=== PATIENT | female | born 2000 | race Caucasian/White ===

== ENCOUNTER → 2024-07-12 07:36 | Outpatient (REF) | payer BC, SELFPAY ==
[2024-07-14 08:13] LABS: Quantiferon Mitogen minus NIL 9.91 IU/mL; Quantiferon NIL 0.09 IU/mL; Quantiferon Plus TB1 minus NIL 0.03 IU/mL (<=0.34); Quantiferon Plus TB2 minus NIL 0.01 IU/mL (<=0.34); Quantiferon TB Gold Plus Negative (Negative)
== END ==
LOC: REG 07:36
PROVIDERS: ATTENDING PHYSICIAN Nurse Practitioner Adult Health; FAMILY PHYSICIAN Family Medicine
DX: R76.11 Nonspecific reaction to tuberculin skin test without active tuberculosis (principal)
CPT/HCPCS: 36415; 86480

== ENCOUNTER → 2024-08-19 05:40 | Outpatient (REF) | payer BC, SELFPAY | LOC: CPAP 05:40 | PROVIDERS: ATTENDING PHYSICIAN Nurse Practitioner Adult Health; FAMILY PHYSICIAN Family Medicine | DX: Z01.419 Encounter for gynecological examination (general) (routine) without abnormal findings (principal) | CPT/HCPCS: G0123 ==